=== PATIENT | female | born 1985 | race Hispanic/Latino ===

== ENCOUNTER 2017-03-28 21:26 | Emergency (ER) | payer OTHER ==
[2017-03-28 22:26] VITALS: BP 132/85; PULSE 76; RESP 15; TEMP 98.7; O2SAT 100
[2017-03-28] MEDS ORDERED: Lactated Ringer's 1,000 ML IV STA (22:35)
--- NOTE | 2017-03-28 22:47 | ED PDOC ---
HPI: Female Pain Time Seen by Provider: 03/28/17 22:32 Chief Complaint (Nursing): Female Genitourinary Chief Complaint (Provider): vaginal bleeding History Per: Patient Onset/Duration Of Symptoms: Days (1 week) Current Symptoms Are (Timing): Still Present Quality Of Discomfort: Cramping Associated Symptoms: denies: Fever, Chills, Nausea, Vomiting Additional Complaint(s): mild spotting for one week, placed on bedrest on Wednesday. At 7p suddenly with more heavy vaginal bleeding with clots and cramping similar to menstrual period. Had nausea/vomiting in up until a week ago Seismic Interpreter: Gracy Past Medical History Reviewed: Historical Data, Nursing Documentation, Vital Signs Vital Signs: Last Vital Signs Temp 98.7 F 03/28/17 22:23 Pulse 76 03/28/17 22:23 Resp 15 03/28/17 22:23 BP 132/85 03/28/17 22:23 Pulse Ox 100 03/28/17 22:23 - Medical History PMH: No Chronic Diseases - Surgical History Other surgeries: Benign breat mass resections - Family History Family History: States: Other Other Family History: Asthma - Social History Current smoker - smoking cessation education provided: No Ex-Smoker (has not smoked in the last 12 months): No - Home Medications Home Medications: Ambulatory Orders Medication Instructions Recorded Nitrofurantoin Macrocrystals 1 cap PO BID #14 cap 03/29/17 [Macrobid] - Allergies Allergies/Adverse Reactions: Allergies Allergy/AdvReac Type Severity Reaction Status Date / Time No Known Allergies Allergy Verified 03/28/17 22:26 Review of Systems ROS Statement: Except As Marked, All Systems Reviewed And Found Negative (and as per HPI) Genitourinary Female: Positive for: Vaginal Bleeding, Pelvic Pain Physical Exam - Reviewed Nursing Documentation Reviewed: Yes Vital Signs Reviewed: Yes - Physical Exam Appears: Positive for: Non-toxic, No Acute Distress Head Exam: Positive for: ATRAUMATIC, NORMOCEPHALIC Skin: Positive for: Warm, Dry Respiratory: Negative for: Respiratory Distress Gastrointestinal/Abdominal: Positive for: Bowel Sounds, Soft. Negative for: Tenderness, Mass, Distended, Guarding, Rebound Lymphatic: Negative for: Adenopathy Neurologic/Psych: Positive for: Alert, Oriented - Laboratory Results Result Diagrams: 01/21/18 22:53 - ECG O2 Sat by Pulse Oximetry: 100 Medical Decision Making Medical Decision Making: Time: 22:35 Plan: Urine dipstick Urine Lactated Ringers 1L IV IV insertion OB transvaginal US Reevaluation Time: 01:17 Transvaginal US FINDINGS: Gestation: Retroverted uterus with gestational sac. 6 mm yolk sac and intrauterine pole. heartbeat of 167 beats per minute. Mean sac size is 4.6 cm suggesting an age of 9 weeks 1 day. [place]-rump length is 3.0 cm suggesting an age of 9 weeks 6 days. Composite age is 10 weeks 0 days. Placenta/amniotic fluid: Cannot be adequately evaluated due to the early gestational age. Uterus/cervix: The cervix is closed measuring 3.4 cm. No myometrial mass. Ovaries: The right ovary measures 1.7 x 1.4 x 2.5 cm and demonstrates blood flow. The left ovary measures 3.2 x 2.2 x 3.0 cm and demonstrates blood flow and a small cystic area measuring 2.0 x 1.3 x 1.8 cm. No mass. Free fluid: No free fluid. Other findings: The EDC is 10/25/2017. IMPRESSION: 1. Single live intrauterine fetus with estimated age of 10 weeks 0 days. The EDC is 10/25/2017. 2. Closed cervix measuring 3.4 cm. Rh positive UA c/w UTI v contamination DW pt findings and plan of care. Bedrest, fluids, macrobid. Fu OB. Scribe Attestation: Documented by Maria Luisa Perla acting as a scribe for Sandra Savage MD. Scribe Attestation: All medical record entries made by the Scribe were at my direction and personally dictated by me. I have reviewed the chart and agree that the record accurately reflects my personal performance of the history, physical exam, medical decision making, and the department course for this patient. I have also personally directed, reviewed, and agree with the discharge instructions and disposition. Disposition - Clinical Impression Clinical Impression: Miscarriage, threatened, early - Disposition Referrals: Marv Santos MD [Staff Provider] - 03/29/17 Disposition: Routine/Home Disposition Time: 01:00 Condition: STABLE Additional Instructions: FOLLOW UP WITH DR LOVE TOMORROW CONTINUE BEDREST RETURN TO ER FOR SEVERE PAIN, BLEEDING MORE THAN ONE PAD AN HOUR, FAINTING OR NEAR FAINTING OR ANY OTHER WORRISOME SYMPTOMS Prescriptions: Nitrofurantoin Macrocrystals [Macrobid] 1 cap PO BID #14 cap Instructions: Threatened Miscarriage (ED), Urinary Tract Infection in (ED) Forms: [facility] ED School/Work Excuse
[2017-03-28 22:59] LABS: BASO % 0.2 % (0.0-2.0); HEMOGLOBIN 11.4 g/dL (12.0-16.0); LYMPH # 1.9 K/uL (1.0-4.3); LYMPH % 25.3 % (20.0-40.0); MEAN CELL VOLUME 83.2 fl (81.0-99.0); MEAN CORPUSCULAR HEMOGLOBIN 27.1 pg (27.0-31.0); MEAN CORPUSCULAR HGB CONC 32.5 g/dL (33.0-37.0); MEAN PLATELET VOLUME 7.8 fl (7.2-11.7); MONO # 0.8 K/uL (0.0-0.8); MONO % 10.4 % (0.0-10.0); NEUT # 4.9 K/uL (1.8-7.0); NEUT % 64.1 % (50.0-75.0); NRBC % 0.1 % (0.0-0.0); RBC 4.22 Mil/uL (3.80-5.20); RED CELL DISTRIBUTION WIDTH 14.8 % (11.5-14.5); WHITE BLOOD COUNT 7.7 K/uL (4.8-10.8)
[2017-03-28 23:17] LABS: SQUAMOUS EPITHIAL 2 /hpf (0-5); URINE BACTERIA RARE (<OCC); URINE BILIRUBIN NEGATIVE (NEGATIVE); URINE BLOOD LARGE (NEGATIVE); URINE CLARITY CLOUDY (Clear); URINE COLOR YELLOW (YELLOW); URINE GLUCOSE (UA) NEG (Normal); URINE LEUKOCYTE ESTERASE SMALL Leu/uL (Negative); URINE NITRATE NEGATIVE (NEGATIVE); URINE PROTEIN NEGATIVE (NEGATIVE); URINE UROBILINOGEN 0.2-1.0 mg/dL (0.2-1.0)
--- NOTE | 2017-03-29 10:50 | US ---
PROCEDURE: First trimester ultrasound HISTORY: vag bleeding r/o ectopic COMPARISON: None available. TECHNIQUE: Standard protocol for this study/examination. FINDINGS: LMP: 01/30/2017 Prior examinations from the current : None TECHNIQUE: Real-time 2D imaging, duplex and color Doppler. FINDINGS: Cardiac activity: Present Rate: 167 BPM Measurements: [place] rump length: 2.97 cm Gestational age based on CRL 9 weeks 6 days Gestational age 10 weeks 1 day based on gestational sac measurement 4.57 cm Gestational age derived from LMP: 8 weeks 2 days ROSALES based on LMP: 11/06/2017 ROSALES based on biometry: 11/03/2015 Gestational concordance documented Yolk sac identified Uterus: Unremarkable. No Cervical abnormalities: Negative examination for cervical dilatation or effacement. Closed cervix measuring 3.4 cm Subchorionic hemorrhage: None UTERUS: 6.8 x 6.9 x 8.7 cm. ADNEXA: Right: 1.4 x 1.7 x 2.5 cm. Normal Doppler arterial waveform documented. Left: 2.2 x 3 x 3.2 cm. Simple cyst 1.3 x 2 cm Normal Doppler arterial waveform documented Fluid in the cul-de-sac: None IMPRESSION: 10 weeks live intrauterine gestation. Concordant results (preliminary interpretation) provided by [employer]. Procedure Completed: 00:22 Preliminary ([employer]) Report: Dictated and Authenticated: 01:03 Final Interpretation: 10:46t
== END 2017-03-29 01:48 | disposition home or self-care (01) ==
LOC: H.ER 21:26
DX: O20.0 Threatened abortion (principal); O23.41 Unspecified infection of urinary tract in pregnancy, first trimester; Z3A.10 10 weeks gestation of pregnancy; Z87.891 Personal history of nicotine dependence
CPT/HCPCS: 76817; 81003; 81025; 84702; 85025; 86850; 86900; 99284; J7120

== ENCOUNTER 2017-10-30 13:25 | Inpatient (IN) | payer OTHER ==
[2017-10-30 14:36] VITALS: BMI 31.3
[2017-10-30] MEDS ORDERED: Lactated Ringer's 1,000 ML IV ONE (14:36)
[2017-10-30] MEDS ORDERED: Lactated Ringer's 1,000 ML IV SCH (14:45)
[2017-10-30 15:40] LABS: BASO % 0.3 % (0.0-2.0); HEMOGLOBIN 11.6 g/dL (12.0-16.0); LYMPH # 1.6 K/uL (1.0-4.3); LYMPH % 16.7 % (20.0-40.0); MEAN CELL VOLUME 87.5 fl (81.0-99.0); MEAN CORPUSCULAR HEMOGLOBIN 29.3 pg (27.0-31.0); MEAN CORPUSCULAR HGB CONC 33.5 g/dL (33.0-37.0); MEAN PLATELET VOLUME 9.5 fl (7.2-11.7); MONO % 10.1 % (0.0-10.0); NEUT # 6.9 K/uL (1.8-7.0); NEUT % 72.9 % (50.0-75.0); NRBC % 0.2 % (0.0-0.0); RBC 3.97 Mil/uL (3.80-5.20); RED CELL DISTRIBUTION WIDTH 13.4 % (11.5-14.5); WHITE BLOOD COUNT 9.4 K/uL (4.8-10.8)
[2017-10-30] MEDS ORDERED: Fentanyl/Bupivacaine HCl 250 ML EPI ONE (15:42)
[2017-10-30] MEDS ORDERED: Bupivacaine HCl 0.5% PF (30 ml) Inj ONE (18:03)
[2017-10-30] MEDS ORDERED: Oxytocin 30 UNIT 30 UNITS/500 ML BAG IV ONE ×2 (18:07→20:17)
--- NOTE | 2017-10-30 20:31 | OBADHP ---
Datetime: 10/30/2017 14:27 Admit Comment, IP Provider: HPI: 31 y/o with EGA 40.2 wks, EDC 10/28/17 presents today with c /o crampy pelvic pain since 12 PM and back pain 10/15, CONTX Q 10 min and increasing, and reports vagi nal bleeding like spotting in underwear today at 12pm, denies LOF, trauma, recent sexual activity. Po sitive recent FM. No other complains at this time. OBGYN: First was a term , denies problems during first . ROS: Unremarkable, except as per HPI. Care Provider: Dr Santos PMH: Reports hx of elevated thyroid hormones and received treatment in the past. FMH: None SocialHx: Denies Tobacco/ETOH/Rec drug use. SURG: Breast cystectomy Allergies: NKA LABS: pending records A/P 31 y/o with term IUP at EGA 40.2 weeks, pelvic exam by attending, noted with increasing CON TX, dilation 4cm and 60% effacement in early labor -Admit to L and D -Monitor CONTX, VS -Monitor FHR tracing -IVF hydration with LR -CBC w/ diff, type and screen -Anesthesia eval for possible epidural for pain control Case discussed with attending Dr Christoph Mendes MD PGY1 (Annotations: Data stored by CPN on behalf of user) Presentation-Admit: Vertex FHR - Baseline A Provider: 140 Membranes, Provider: Bulging Comments, ACOG Physical Exam: GEN: NAD HEENT: Normocephalic, EOMI RESP: CTA b/l CV: RRR, No murmurs noted ABD: Soft, Gravid LE: No edema. Gestation - Est Wks by US: 40+ Vital Signs Provider: Reviewed; Within Normal Limits IP Chief Complaint: Uterine contractions NICHD Variability Prov Fetus A: Moderate 6-25bpm NICHD Accel Fetus A IP Provider: [id number] FHR Category Provider Fetus A: Category I NICHD Decel Fetus A IP Provider: None Dilatation, Provider: 4 Effacement, Provider: 60 Station, Provider: -3 EGA AdmitDate IP: 40.2 IP Adm Impression: Term, intrauterine IP Admit Plan: Admit to unit
--- NOTE | 2017-10-30 20:34 | OBDS ---
MATERNAL INFORMATION Delivery Anesthesia: Epidural Medications in Delivery: Pitocin Estimated Blood Loss (ml): 150ml Maternal Complications: None Provider Comments: delivery of live baby boy 9/9 compound presentation oright arm meconium flu id first degree perineal laceration and repair LABOR SUMMARY EDC: 10/28/2017 00:00 No. Babies in Womb: 1 Labor Anesthesia: Epidural LABOR INFORMATION Reason for Induction: Not Applicable Steroids Given: None Reason Steroids Not Administered: Not Applicable VAGINAL DELIVERY Episiotomy: None Laceration Extension: N/A Laceration Type: Perineal Laceration Repair Note: first degree laceration repaired with 2-0 chromic Count Comment: complete PRESENTATION/POSITION BABY A Presentation: Cephalic INFORMATION BABY A Gestational Age at Delivery: 40.2
[2017-10-30] MEDS ORDERED: Benzocaine/Menthol SPRAY TOP PRN ×2 (20:40→23:37)
[2017-10-30] MEDS ORDERED: Acetaminophen-Codeine 300/30 mg Tab PO PRN ×2 (20:40→23:37)
[2017-10-30] MEDS ORDERED: Oxycodone/Acetaminophen 5/325 mg Tab PO PRN ×4 (20:40→23:37)
[2017-10-31 06:59] LABS: BASO % 0.2 % (0.0-2.0); HEMOGLOBIN 9.7 g/dL (12.0-16.0); LYMPH # 1.8 K/uL (1.0-4.3); LYMPH % 13.3 % (20.0-40.0); MEAN CELL VOLUME 88.7 fl (81.0-99.0); MEAN CORPUSCULAR HEMOGLOBIN 29.6 pg (27.0-31.0); MEAN CORPUSCULAR HGB CONC 33.4 g/dL (33.0-37.0); MEAN PLATELET VOLUME 8.8 fl (7.2-11.7); MONO # 1.5 K/uL (0.0-0.8); NEUT # 10.3 K/uL (1.8-7.0); NEUT % 75.5 % (50.0-75.0); NRBC % 0.1 % (0.0-0.0); RBC 3.27 Mil/uL (3.80-5.20); RED CELL DISTRIBUTION WIDTH 13.2 % (11.5-14.5); WHITE BLOOD COUNT 13.6 K/uL (4.8-10.8)
--- NOTE | 2017-10-31 12:22 | OBPPN ---
Datetime: 10/31/2017 12:14 PP Pain Prov: Within normal limits PP Pain Prov comment: No SOB, chest or leg pains PP Nausea Prov: Denies PP Flatus Prov: Yes PP Nausea Prov comment: No C/F PP Breasts Prov: Normal PP Lungs Prov: Normal PP Abdomen/Uterus Prov: Abnormal PP Lochia Prov: Normal PP CVA Tenderness Prov: Normal PP Extremities Prov: Normal PP C/S Incision Prov: Not Applicable PP Progress Prov: Normal PP Comments Phys Exam Prov: breast not engorged, Abd not distended fundus firm below the umb, Ext no calf tenderness. PP Impression Prov: Normal progression PP Plan Prov: Continue present management PP Progress Note Prov: OOB and ambulation, continue pp care IP PP Procedures: None
--- NOTE | 2017-11-01 08:20 | OBPPN ---
Datetime: 11/01/2017 08:16 PP Pain Prov: Within normal limits PP Nausea Prov: Denies PP Flatus Prov: Yes PP BM Prov: Yes PP Breasts Prov: Normal PP Heart Prov: Normal PP Lungs Prov: Normal PP Abdomen/Uterus Prov: Normal PP Lochia Prov: Normal PP Vulva/Perineum Prov: Normal PP CVA Tenderness Prov: Normal PP Extremities Prov: Normal PP Progress Prov: Normal PP Impression Prov: Normal progression PP Plan Prov: Continue present management PP Progress Note Prov: stable ppd2 contiue present care IP PP Procedures: None Vital Signs Provider PP: Reviewed; Within Normal Limits
--- NOTE | 2017-11-01 08:22 | OBDCSUM ---
Datetime: 11/01/2017 08:18 Discharged to, Provider: Home Follow up at, Provider: Disch Instr Activity: Normal activity; Bedrest; May be up to bathroom; May be up for meals; May Show er Disch Instr Diet: Regular Discharge Instructions, Provider: Routine instructions given Discharge Diagnosis, Provider: Term Delivered Discharge Time: 11/01/2017 08:19 Follow up in weeks, Provider: 5-6weeks Disch Referrals: None Disch Activity Restrictions: No exercising; No lifting; No driving; Minimize walking; Minimize stair -climbing; No sexual activity; Nothing in vagina - [place], tampons, douche Contraception after Delivery: Undecided
[2017-11-01 20:58] VITALS: BP 121/73; PULSE 67; RESP 20; TEMP 98.6; O2SAT 100
== END 2017-11-01 14:50 | disposition home or self-care (01) | DRG 775 ==
LOC: H.EROB2 13:25 → H.L&D 14:37 → H.OB/GYN 23:15
PROVIDERS: ADMIT Specialist; ATTEND Specialist
PROC: 10E0XZZ Delivery of Products of Conception, External Approach (ICD-10-PCS; principal; 2017-10-30)
PROC: 0HQ9XZZ Repair Perineum Skin, External Approach (ICD-10-PCS; 2017-10-30)
PROC: 4A1HXCZ Monitoring of Products of Conception, Cardiac Rate, External Approach (ICD-10-PCS; 2017-10-30)
DX: O48.0 Post-term pregnancy (principal); O77.0 Labor and delivery complicated by meconium in amniotic fluid; O32.6XX0 Maternal care for compound presentation, not applicable or unspecified; O70.0 First degree perineal laceration during delivery; Z37.0 Single live birth; Z3A.40 40 weeks gestation of pregnancy

== ENCOUNTER 2018-06-28 18:18 | Emergency (ER) | payer OTHER ==
[2018-06-28 18:18] VITALS: BMI 31.3
[2018-06-28 18:31] VITALS: BP 115/78; PULSE 68; RESP 16; TEMP 98.5; O2SAT 99
[2018-06-28 19:17] LABS: BASO % 0.2 % (0.0-2.0); EOS % 0.3 % (0.0-4.0); HEMOGLOBIN 11.4 g/dL (12.0-16.0); LYMPH % 10.5 % (20.0-40.0); MEAN CELL VOLUME 88.9 fl (81.0-99.0); MEAN CORPUSCULAR HEMOGLOBIN 29.9 pg (27.0-31.0); MEAN CORPUSCULAR HGB CONC 33.6 g/dL (33.0-37.0); MEAN PLATELET VOLUME 7.9 fl (7.2-11.7); MONO # 0.5 K/uL (0.0-0.8); MONO % 5.6 % (0.0-10.0); NEUT # 7.9 K/uL (1.8-7.0); NEUT % 83.4 % (50.0-75.0); NRBC % 0.1 % (0.0-0.0); RBC 3.8 Mil/uL (3.80-5.20); RED CELL DISTRIBUTION WIDTH 13.8 % (11.5-14.5); WHITE BLOOD COUNT 9.5 K/uL (4.8-10.8)
--- NOTE | 2018-06-28 19:22 | ED PDOC ---
Lower Extremity Pain/Injury Time Seen by Provider: 06/28/18 18:42 Chief Complaint (Nursing): Lower Extremity Problem/Injury Chief Complaint (Provider): Rash on Left Leg History Per: Patient History/Exam Limitations: no limitations Onset/Duration Of Symptoms: Days (5) Current Symptoms Are (Timing): Still Present Additional Complaint(s): 32 year old female with hypothyroidism, s/p dermatological removal of mole on right knee on 06/15/18 and afterwards maintained a bandage with cloth tape afterwards presents to the ED for a rash. Currently, patient developed vesicular rash with pruritus and erythema onset 5 days ago. There is no discharge from the wound. Patient went to [facility] yesterday where she was started on Prednisone and Pepcid. The motion graphics designer provided oral antibiotics and Mupirocin for which she has been using daily. Patient saw her PMD, Dr. Dunham who referred her to the ED for further evaluation for DVT given right leg is swollen compared to the left leg. Otherwise, patient denies fever, shortness of breath, oral control, history of DVT . PMD: Dr. Dunham Past Medical History Reviewed: Historical Data, Nursing Documentation, Vital Signs Vital Signs: Last Vital Signs Temp 98.5 F 06/28/18 18:30 Pulse 68 06/28/18 18:30 Resp 16 06/28/18 18:30 BP 115/78 06/28/18 18:30 Pulse Ox 99 06/28/18 18:30 - Medical History PMH: Hypothyroidism Denies: Depression, Diabetes, HTN - Surgical History Surgical History: No Surg Hx - Family History Family History: States: Unknown Family Hx - Social History Current smoker - smoking cessation education provided: No - Home Medications Home Medications: Ambulatory Orders Medication Instructions Recorded Levothyroxine 100 mcg PO DAILY 06/27/18 Prednisone [Deltasone] 40 mg PO DAILY #8 tablet 06/27/18 Bacitracin OINT 1 applic TP BID #2 tube 06/28/18 Famotidine [Pepcid] 20 mg PO Q12 #14 tab 06/28/18 - Allergies Allergies/Adverse Reactions: Allergies Allergy/AdvReac Type Severity Reaction Status Date / Time No Known Allergies Allergy Verified 03/28/17 22:26 Review of Systems ROS Statement: Except As Marked, All Systems Reviewed And Found Negative Skin: Positive for: Rash (left leg ), Other (itchiness to the left leg ) Physical Exam - Reviewed Nursing Documentation Reviewed: Yes Vital Signs Reviewed: Yes - Physical Exam Appears: Positive for: Well, Non-toxic. Negative for: No Acute Distress Extremity: Positive for: Other (On right leg healing surgical site with sutures intact with surrounding irritated skin. Well demarcated with distribution of cloth tape with some tracking erythema. Also has surgical dawit sites from yesterday at [facility] and no induration from wound ). Negative for: Deformity Neurological/Psych: Positive for: Awake, Alert, Normal Tone, Oriented (x3) - Laboratory Results Result Diagrams: 06/28/18 18:50 06/28/18 18:50 - ECG O2 Sat by Pulse Oximetry: 99 (RA) Pulse Ox Interpretation: Normal Medical Decision Making Medical Decision Making: Time: 18:51 Assessment: 32 year old female with likely progression of significant contact dermatitis, however will r/o DVT and obtain CBC with cellulitis compartment. Will switch Mupirocin to other tropical antibiotics and increased hydrocortisone to 2% Plan: BMP CBC w/ differential Duplex lower extremity vein right [US] Reevaluation 19:00 Patient care endorsed to Dr. Gómez pending US, labs, revelation at bedside handoffs. ----- Scribe Attestation: Documented by Melisa Coley, acting as a scribe for Leoncio Elizabeth III, DO. Provider Scribe Attestation: All medical record entries made by the Scribe were at my direction and personally dictated by me. I have reviewed the chart and agree that the record accurately reflects my personal performance of the history, physical exam, medical decision making, and the department course for this patient. I have also personally directed, reviewed, and agree with the discharge instructions and d isposition. Disposition - Clinical Impression Clinical Impression: Contact dermatitis, Skin irritation - Patient ED Disposition Is Patient to be Admitted: Transfer of Care - Disposition Disposition: Transfer of Care Disposition Time: 19:00 Condition: STABLE Prescriptions: Bacitracin OINT 1 applic TP BID #2 tube Famotidine [Pepcid] 20 mg PO Q12 #14 tab Instructions: Dermatitis, Contact Dermatitis (DC) Forms: [facility] (German)
[2018-06-28 19:29] LABS: BLOOD UREA NITROGEN 10 mg/dl (7-17); CALCIUM 9.1 mg/dL (8.4-10.2); GFR NON-AFRICAN AMERICAN > 60
--- NOTE | 2018-06-28 19:48 | ED PDOC ---
- Laboratory Results Result Diagrams: 06/28/18 18:50 06/28/18 18:50 - ECG O2 Sat by Pulse Oximetry: 99 (RA) Pulse Ox Interpretation: Normal Medical Decision Making Medical Decision Makin:00 Patient endorsed to this provider by Dr. Elizabeth at bedside, pending US, labs and reevaluation. 20:20 US FINDINGS: DEEP VEINS: The common femoral, superficial femoral, and popliteal veins are echolucent and compressible. There is normal color Doppler flow throughout. The visualized calf veins appear patent. SUPERFICIAL VEINS: The visualized greater saphenous vein is patent. SOFT TISSUES: No popliteal fossa cyst or other abnormalities. IMPRESSION: No deep venous thrombosis evident on right lower extremity examination. 21:05 Labs reviewed and reveal no clinically significant abnormalities. On re-evaluation, patient is complaining of mild itchiness to the site, but no other complaints. She is stable for discharge. Discussed return precautions with patient including fever, chills, discharge and any other further propagation of swelling. Patient has a scheduled follow up appointment with her telephone sterilizer in 4 days. Advised her to discontinue use of Bactroban in favor of Bacitracin. Diagnosis is allergic contact dermatitis. ScribeAttestation: Documented byFelecia Mackenzie, acting as a scribe for Aurelio Gómez MD. Provider ScribeAttestation: All medical record entries made by the Scribe were at my direction and personally dictated by me. I have reviewed the chart and agree that the record accurately reflects my personal performance of the history, physical exam, medical decision making, and the department course for this patient. I have also personally directed, reviewed, and agree with the discharge instructions and disposition. Disposition - Clinical Impression Clinical Impression: Contact dermatitis, Skin irritation - POA Present On Arrival: None - Disposition Disposition: Routine/Home Disposition Time: 21:09 Condition: STABLE Prescriptions: Bacitracin OINT 1 applic TP BID #2 tube Famotidine [Pepcid] 20 mg PO Q12 #14 tab Instructions: Dermatitis, Contact Dermatitis (DC) Forms: [facility] (Syriac)
--- NOTE | 2018-06-29 10:40 | US ---
Date of service: 06/28/2018 PROCEDURE: Right lower extremity venous duplex Doppler. HISTORY: RLE swelling, pain, include calf COMPARISON: None available. TECHNIQUE: Common femoral, superficial femoral, popliteal and posterior tibial veins were evaluated. Flow was assessed with color Doppler, compressibility, assessment of phasic flow and augmentation response. FINDINGS: COMMON FEMORAL VEIN: Unremarkable. SUPERFICIAL FEMORAL VEIN: Unremarkable. POPLITEAL VEIN: Unremarkable. POSTERIOR TIBIAL VEIN: Unremarkable. OTHER FINDINGS: None. IMPRESSION: No evidence of deep venous thrombosis in the right lower extremity. Concordant findings (preliminary report) provided by [facility].
== END 2018-06-28 21:19 | disposition home or self-care (01) ==
LOC: H.ER 18:18
DX: L23.9 Allergic contact dermatitis, unspecified cause (principal); E03.9 Hypothyroidism, unspecified